=== PATIENT | male | born 1965 | race Caucasian/White ===

== ENCOUNTER 2023-09-20 18:42 | Emergency (ER) | payer MEDICARE, MEDICAID ==
[2023-09-20] MEDS ORDERED: Acetaminophen/oxyCODONE 325-5 MG Tab PO ONE (18:43)
[2023-09-20 18:50] VITALS: BP 161/72; PULSE 83
[2023-09-20 19:20] LABS: BLOOD UREA NITROGEN,BUN 30 mg/dL (7-18); BUN/CREATININE RATIO 17.6 (9-20); CALCIUM 9.6 mg/dL (8.6-10.2); CARBON DIOXIDE,CO2 30 mmol/L (21-32); CHLORIDE,CL 97 mmol/L (100-110); CREATININE 1.7 mg/dL (0.70-1.30); EST CRCL DRUG DOSING (CG) 45.82 mL/min; ESTIMATED GFR 46 mL/min (>60); GLUCOSE RANDOM 113 mg/dL (80-116); POTASSIUM,K 3.2 mmol/L (3.5-5.3); SODIUM,NA 134 mmol/L (135-145)
[2023-09-20 19:27] LABS: MEAN CORPUSCULAR HEMOGLOBIN 28.6 pg (27.0-33.3); MEAN CORPUSCULAR VOLUME 84.2 fL (80.8-98.7); MEAN PLATELET VOLUME 7.3 fL (6.7-11.0); PLATELET COUNT,PLT 368 x10(3)uL (117-477); RED BLOOD CELL COUNT 6.29 x10(6)uL (3.90-5.90); RED CELL DISTRIBUTION WIDTH 14.8 % (12.4-15.0); WHITE BLOOD CELL COUNT,WBC 23.4 x10-3/uL (3.2-10.1)
[2023-09-20 19:36] LABS: LYMPHOCYTES PERCENT MAN 13 % (13-37); MONOCYTES PERCENT MAN 9 % (4-12); SEG NEUTROPHILS PERCENT MAN 78 % (46-82)
[2023-09-20] MEDS ORDERED: Sodium Chloride 0.9% 10 ML Syringe FLUSH PRN (19:41)
[2023-09-20] MEDS: Morphine 4 MG/ML VIAL IM ONE (20:01)
[2023-09-20] MEDS: Sodium Chloride 0.9% 1,000 ML IV SCH (20:01)
[2023-09-20] MEDS: Ondansetron 4 MG Tab.DIS PO ONE (20:01)
[2023-09-20] MEDS: Ondansetron 4 MG/2 ML SDV IVPUSH ONE (20:02)
[2023-09-20] MEDS: Morphine 4 MG/ML VIAL IVPUSH ONE (20:02)
[2023-09-20 20:05] LABS: LIPASE 33 U/L (16-77)
[2023-09-20 20:09] LABS: BILIRUBIN TOTAL 0.7 mg/dL (0.1-1.3); PROTEIN TOTAL,TP 7.4 g/dL (6.0-8.0)
[2023-09-20 20:13] LABS: LACTIC ACID 1.5 mmol/L (0.4-2.0)
[2023-09-20 20:14] LABS: C-REACTIVE PROTEIN < 0.50 mg/dL (<0.50)
[2023-09-20 20:24] LABS: BILIRUBIN,URINE SMALL (NEGATIVE); GLUCOSE,URINE NORMAL (NORMAL); KETONES,URINE 15 mg/dL (NEGATIVE); LEUKOCYTE ESTERASE,URINE SMALL (NEGATIVE); NITRITE,URINE NEGATIVE (NEGATIVE); OCCULT BLOOD,URINE LARGE (NEGATIVE); PROTEIN,URINE 30 mg/dL (NEGATIVE); UROBILINOGEN,URINE 1 mg/dL (NEGATIVE)
[2023-09-20 20:26] LABS: APPEARANCE,URINE CLOUDY (CLEAR); BACTERIA,URINE MODERATE (NS); COLOR,URINE BROWN (YELLOW); SQUAMOUS EPITHELIAL CELLS,UR FEW (NS,R,O); WBC,URINE >100 (0-5)
[2023-09-20] MEDS: HYDROmorphone 2 MG/ML SDV IVPUSH STA (20:32)
[2023-09-20] MEDS: Tamsulosin 0.4 MG Cap.ER PO ONE (21:09)
[2023-09-20] MEDS: Ketorolac 30 MG/ML SDV IVPUSH ONE (21:10)
[2023-09-20] MEDS: Ciprofloxacin 500 MG Tab PO ONE (21:10)
[2023-09-20] MEDS: Acetaminophen/oxyCODONE 325-5 MG Tab PO STA (21:12)
== END 2023-09-20 21:58 | disposition home or self-care (01) ==
LOC: FB.ED 18:42
DX: N13.2 Hydronephrosis with renal and ureteral calculous obstruction (principal); N39.0 Urinary tract infection, site not specified; E78.00 Pure hypercholesterolemia, unspecified; J44.9 Chronic obstructive pulmonary disease, unspecified; I12.9 Hypertensive chronic kidney disease with stage 1 through stage 4 chronic kidney disease, or unspecified chronic kidney disease; N18.9 Chronic kidney disease, unspecified; E03.9 Hypothyroidism, unspecified; Z79.899 Other long term (current) drug therapy; Z88.0 Allergy status to penicillin; Z88.8 Allergy status to other drugs, medicaments and biological substances
CPT/HCPCS: 36415; 74176; 80048; 81001; 82040; 82150; 82247; 83605; 83690; 84075; 84155; 84450; 84460; 85025; 86140; 87040; 87086; 96361; 96374; 96375; 99284; A9270; J1170; J1885; J2270; J2405; J7030

== ENCOUNTER 2023-12-05 14:36 | Emergency (ER) | payer MEDICARE, MEDICAID ==
[2023-12-05 15:02] VITALS: BP 136/102; PULSE 100
== END 2023-12-05 18:22 | disposition home or self-care (01) ==
LOC: FB.ED 14:36
DX: S92.511A Displaced fracture of proximal phalanx of right lesser toe(s), initial encounter for closed fracture (principal); S50.312A Abrasion of left elbow, initial encounter; I10 Essential (primary) hypertension; E78.00 Pure hypercholesterolemia, unspecified; E66.9 Obesity, unspecified; E03.9 Hypothyroidism, unspecified; Z88.0 Allergy status to penicillin; Z88.6 Allergy status to analgesic agent; Z88.8 Allergy status to other drugs, medicaments and biological substances; W10.8XXA Fall (on) (from) other stairs and steps, initial encounter
CPT/HCPCS: 73630-RT; 99283